=== PATIENT | female | born 1985 | race Caucasian/White ===

== ENCOUNTER 2016-09-14 09:52 | Emergency (ER) | payer SELFPAY ==
[~2016-09-14] VITALS: Ht 162.5 cm; Wt 60.3 kg
[~2016-09-14 09:52] MED LIST: ALEVE220 MG PO; ANAPROX DS550 MG PO; AUGMENTIN 875 M1 TAB PO; BACTRIM DS 8001 TA1 PO; BIRTH CONTROL1 EAC1 PO; CIPRO500 MG PO; FLEXERIL10 MG PO; KEFLEX250 MG PO; MACROBID100 M1 PO; MOTRIN800 MG PO; NKHM; PHENERGAN W/DM120 ML PO; VOLTAREN50 M1 PO; ZOFRAN ODT4 MG SL; Zofran4 MG PO
[2016-09-14] MEDS ORDERED: AZURETTE1 TAB PO (09:57)
[2016-09-14] MEDS ORDERED: PREDNISONE10 MG PO (11:44)
[2016-09-14] MEDS ORDERED: CYCLOBENZAPRINE10 MG PO (11:44)
== END 2016-09-14 11:48 | disposition home or self-care (01) ==
LOC: ED 09:52
DX: M94.0 Chondrocostal junction syndrome [Tietze] (principal); F17.200 Nicotine dependence, unspecified, uncomplicated; Z91.013 Allergy to seafood; Z79.899 Other long term (current) drug therapy

== ENCOUNTER 2016-11-12 18:44 | Emergency (ER) | payer OTHER ==
[~2016-11-12] VITALS: Ht 162.5 cm; Wt 59.0 kg
[~2016-11-12 18:44] MED LIST changes: +AZURETTE1 TAB PO; +CYCLOBENZAPRINE10 MG PO; +PREDNISONE10 MG PO
[2016-11-12] MEDS ORDERED: NAPROSYN500 MG PO (18:56)
== END 2016-11-12 22:05 | disposition home or self-care (01) ==
LOC: ED 18:44
DX: S93.401A Sprain of unspecified ligament of right ankle, initial encounter (principal); F17.200 Nicotine dependence, unspecified, uncomplicated; Z79.899 Other long term (current) drug therapy; Z91.013 Allergy to seafood; X58.XXXA Exposure to other specified factors, initial encounter; Y93.89 Activity, other specified; Y92.89 Other specified places as the place of occurrence of the external cause; Y99.9 Unspecified external cause status

== ENCOUNTER 2017-07-15 21:17 | Emergency (ER) | payer OTHER ==
[~2017-07-15] VITALS: Ht 162.5 cm; Wt 59.0 kg
[~2017-07-15 21:17] MED LIST changes: +NAPROSYN500 MG PO
[2017-07-15] MEDS ORDERED: IBU800 MG PO (21:24)
== END 2017-07-15 21:53 | disposition home or self-care (01) ==
LOC: ED 21:17
DX: M25.531 Pain in right wrist (principal); Z79.899 Other long term (current) drug therapy; Z91.013 Allergy to seafood; W19.XXXA Unspecified fall, initial encounter; Y93.89 Activity, other specified; Y92.098 Other place in other non-institutional residence as the place of occurrence of the external cause; Y99.9 Unspecified external cause status

== ENCOUNTER → 2022-06-19 | Outpatient (CLI) | payer OTHER ==
[~2022-06-19] MED LIST changes: +IBU800 MG PO
[2022-06-19 08:54] LABS: MEAN CELL VOLUME 90.9 fl (81.0-99.0); MEAN CORPUSCULAR HGB 29.8 pg (27.0-31.0); MEAN CORPUSCULAR HGB CONC 32.8 g/dl (33.0-37.0); MEAN PLATELET VOLUME 9.8 fl (9.6-12.3); RED BLOOD COUNT 4.4 10*6/uL (4.10-5.10); RED CELL DISTRI WIDTH 13.4 % (0-14.5); WHITE BLOOD COUNT 9.2 10*3/uL (4.8-10.8)
[2022-06-19 09:27] LABS: ALKALINE PHOSPHATASE 45 U/L (46-116); BUN 12 mg/dl (9-23); CHLORIDE 103 mmol/L (98-107); CHOLESTEROL 211 mg/dL (<200); FREE T4 1.18 ng/dl (0.89-1.76); LDL CHOLESTEROL 94 mg/dL (9-159); POTASSIUM 4.1 mmol/L (3.4-5.1); SGPT/ALT 11 U/L (10-49); THYROID STIM HORMONE (HS) 0.818 uIU/ml (0.550-4.780); TOTAL PROTEIN 6.5 gm/dL (6.0-8.0); TRIGLYCERIDES 256 mg/dl (<150)
[2022-06-19 09:38] LABS: VITAMIN D, 25-HYDROXY 33.2 ng/mL (30-100)
== END | disposition home or self-care (01) ==
LOC: LAB 07:55
PROVIDERS: ATTEND Family Medicine
DX: Z00.00 Encounter for general adult medical examination without abnormal findings (principal); R53.83 Other fatigue; E78.00 Pure hypercholesterolemia, unspecified; E55.9 Vitamin D deficiency, unspecified